=== PATIENT | male | born 1970 | race Caucasian/White ===

== ENCOUNTER 2016-09-27 05:24 | Observation (INO) | payer SELFPAY ==
[2016-09-27] VITALS (7 sets, daily range): BP systolic 122–144; BP diastolic 66–83; PULSE 76–97; RESP 16–18; TEMP 97.8–98.8; O2SAT 94–99
[~2016-09-27] VITALS: Ht 177.8 cm; Wt 105.0 kg
[2016-09-27] MEDS ORDERED: methylPREDNISolone SOD SUCC 125 MG/2 ML VIAL IVP ONE (05:30)
[2016-09-27] MEDS ORDERED: FAMOTIDINE 20 MG/2 ML VIAL IV PUSH ONE (05:30)
[2016-09-27] MEDS ORDERED: SODIUM CHLORIDE 0.9% FLUSH 5 ML FLUSH IVF PRN (05:30)
[2016-09-27] MEDS ORDERED: OMEP20TA PO (05:46)
[2016-09-27] MEDS ORDERED: LISI-515 PO (05:46)
[2016-09-27] MEDS ORDERED: PENICILLIN V POTASSIUM 500 MG TAB PO ONE (06:00)
[2016-09-27 06:10] LABS: AUTOMATED NEUTROPHIL # 3.5 TH/MM3 (1.8-7.7); BASOPHIL % 0.6 % (0.0-2.0); EOSINOPHIL # 0.1 TH/MM3 (0-0.4); EOSINOPHIL % 1.5 % (0.0-4.0); HEMATOCRIT 40.4 % (39.0-51.0); HEMO FLAGS DIFF FINAL; LYMPH % 43.9 % (9.0-44.0); LYMPHOCYTE # 3.2 TH/MM3 (1.0-4.8); MEAN CORPUSCULAR HEMOGLOBIN 28.3 PG (27.0-34.0); MEAN CORPUSCULAR HGB CONC 33.3 % (32.0-36.0); MONO % 6.4 % (0.0-8.0); NEUT % 47.6 % (16.0-70.0); PLATELET COUNT 284 TH/MM3 (150-450); RED BLOOD COUNT 4.76 MIL/MM3 (4.50-5.90); RED CELL DISTRIBUTION WIDTH 14.3 % (11.6-17.2); WHITE BLOOD COUNT 7.3 TH/MM3 (4.0-11.0)
--- NOTE | 2016-09-27 06:26 | PD ---
HPI Chief Complaint: Edema Time Seen by Provider: 05:27 Travel History International Travel<30 days: No Contact w/Intl Traveler<30days: No Traveled to known affect area: No History of Present Illness HPI Patient's 46 years old. The patient is here with swelling of the uvula. He woke up with a sensation of swelling in his throat. It has been constant since. He takes lisinopril. He said no fever or sore throat recently. EMS gave the patient Benadryl 50 mg IM. Patient also received 0.3 mg epinephrine. No similar prior events. PFSH Past Medical History Diminished Hearing: No GERD: Yes Hypertension: Yes Tetanus Vaccination: Unknown Influenza Vaccination: No Past Surgical History Appendectomy: Yes Cholecystectomy: Yes Social History Alcohol Use: Yes (daily) Tobacco Use: No Substance Use: No Allergies-Medications (Allergen,Severity, Reaction): Coded Allergies: No Known Allergies (Unverified , 09/27/16) Reported Meds & Prescriptions Reported Meds & Active Scripts Active Reported Omeprazole 20 Mg Tab 20 Mg PO DAILY Lisinopril 20 Mg Tab 20 Mg PO DAILY Review of Systems Except as stated in HPI: all other systems reviewed are Neg Physical Exam Narrative GENERAL: 46 yo M, WNWD SKIN: Warm and dry. HEAD: Atraumatic. Normocephalic. EYES: Pupils equal and round. No scleral icterus. No injection or drainage. ENT: No nasal bleeding or discharge. Mucous membranes pink and moist. Uvula mildly edematous. No adjacent erythema/exudate or sign of infectious pharyngitis. NECK: Trachea midline. No JVD. CARDIOVASCULAR: Regular rate and rhythm. No murmur appreciated. RESPIRATORY: No accessory muscle use. Clear to auscultation. Breath sounds equal bilaterally. GASTROINTESTINAL: Abdomen soft, non-tender, nondistended. Hepatic and splenic margins not palpable. MUSCULOSKELETAL: No obvious deformities. No clubbing. No cyanosis. No edema. NEUROLOGICAL: Awake and alert. No obvious cranial nerve deficits. Motor grossly within normal limits. Normal speech. PSYCHIATRIC: Appropriate mood and affect; insight and judgment normal. Data Data Last Documented VS Vital Signs Date Time Temp Pulse Resp B/P Pulse Ox O2 Delivery O2 Flow Rate FiO2 09/27/16 06:26 89 18 134/77 95 Room Air 09/27/16 05:38 97.9 Orders Basic Metabolic Panel (Bmp) (09/27/16 05:27) Complete Blood Count With Diff (09/27/16 05:27) Ecg Monitoring (09/27/16 05:27) Iv Access Insert/Monitor (09/27/16 05:27) Oximetry (09/27/16 05:27) Methylprednisolone So Succ Inj (Solumedr (09/27/16 05:30) Famotidine Inj (Pepcid Inj) (09/27/16 05:30) Sodium Chloride 0.9% Flush (Ns Flush) (09/27/16 05:30) Soft Tissue Neck (09/27/16 ) Penicillin V Potassium (Veetids) (09/27/16 06:00) Labs Laboratory Tests Test 09/27/16 05:50 White Blood Count 7.3 TH/MM3 Red Blood Count 4.76 MIL/MM3 Hemoglobin 13.5 GM/DL Hematocrit 40.4 % Mean Corpuscular Volume 85.0 FL Mean Corpuscular Hemoglobin 28.3 PG Mean Corpuscular Hemoglobin 33.3 % Concent Red Cell Distribution Width 14.3 % Platelet Count 284 TH/MM3 Mean Platelet Volume 8.8 FL Neutrophils (%) (Auto) 47.6 % Lymphocytes (%) (Auto) 43.9 % Monocytes (%) (Auto) 6.4 % Eosinophils (%) (Auto) 1.5 % Basophils (%) (Auto) 0.6 % Neutrophils # (Auto) 3.5 TH/MM3 Lymphocytes # (Auto) 3.2 TH/MM3 Monocytes # (Auto) 0.5 TH/MM3 Eosinophils # (Auto) 0.1 TH/MM3 Basophils # (Auto) 0.0 TH/MM3 CBC Comment DIFF FINAL Differential Comment Sodium Level 139 MEQ/L Potassium Level 3.4 MEQ/L Chloride Level 105 MEQ/L Carbon Dioxide Level 21.8 MEQ/L Anion Gap 12 MEQ/L Blood Urea Nitrogen 16 MG/DL Creatinine 0.94 MG/DL Estimat Glomerular Filtration 86 ML/MIN Rate Random Glucose 115 MG/DL Calcium Level 8.6 MG/DL [facility] Medical Decision Making Medical Screen Exam Complete: Yes Emergency Medical Condition: Yes Medical Record Reviewed: Yes Differential Diagnosis Angioedema, pharyngitis, anaphylaxis Narrative Course Epinephrine, Solumedrol, Benadryl and Pepcid administered. Pt will be monitored in the ER. Oncoming provider will continue to observe patient with disposition pending response to interventions offered here. Howard New MD Sep 27, 2016 06:26
--- NOTE | 2016-09-27 06:33 | RADRPT ---
EXAM DATE/TIME: 09/27/2016 06:22 [place] COMPARISON: No previous studies available for comparison. INDICATIONS : Sore throat with difficulty swallowing. MEDICAL HISTORY : None. SURGICAL HISTORY : None. ENCOUNTER: Initial ACUITY: 1 day PAIN SCORE: 6/10 LOCATION: Bilateral neck FINDINGS: Two view examination of the soft tissues of the neck demonstrates the hypopharyngeal airway to have a grossly normal configuration. The trachea is midline. No radiopaque foreign bodies are seen. CONCLUSION: 1. Negative soft tissue examination of the neck Manjinder Murphy MD on September 27, 2016 at 6:31 Board Certified Radiologist. This report was verified electronically.
[2016-09-27 06:41] LABS: BICARBONATE 21.8 MEQ/L (21.0-32.0); POTASSIUM 3.4 MEQ/L (3.5-5.1)
--- NOTE | 2016-09-27 08:06 | PD ---
Physical Exam Date Seen by Provider: Sep 27, 2016 Time Seen by Provider: 08:01 Narrative 46-year-old male came to the emergency room with history of difficulty swallowing and foreign body sensation at the back of his throat. He was seen by the previous ER physician who had diagnosed him with uvulitis since on exam a swollen and elongated uvula was noticed. Patient came in by EMS and had received atropine and IM Benadryl. Here he was given IV Solu-Medrol and IV Pepcid. I went and saw the patient and hour and a half after the medications. He seemed very anxious and was sitting up. Saying that he wanted to sleep but was afraid to sleep in case he stopped breathing. I looked at his uvula and it was edematous but did not seem to be obstructing the airway. Patient did not have any stridor or drooling. He was talking normal. I plan to watch him for another 2 and half hours. If symptoms improve patient will be discharged. Otherwise I will admit him for observation. I have explained this to the patient and he understands and is comfortable with that plan. Data Data Last Documented VS Vital Signs Date Time Temp Pulse Resp B/P Pulse Ox O2 Delivery O2 Flow Rate FiO2 09/27/16 06:26 89 18 134/77 95 Room Air 09/27/16 05:38 97.9 Orders Basic Metabolic Panel (Bmp) (09/27/16 05:27) Complete Blood Count With Diff (09/27/16 05:27) Ecg Monitoring (09/27/16 05:27) Iv Access Insert/Monitor (09/27/16 05:27) Oximetry (09/27/16 05:27) Methylprednisolone So Succ Inj (Solumedr (09/27/16 05:30) Famotidine Inj (Pepcid Inj) (09/27/16 05:30) Sodium Chloride 0.9% Flush (Ns Flush) (09/27/16 05:30) Soft Tissue Neck (09/27/16 ) Penicillin V Potassium (Veetids) (09/27/16 06:00) Racemic Epinephrine 2.25% Neb (Racepinep (09/27/16 08:45) Alprazolam (Xanax) (09/27/16 09:00) Diet Npo (2/18/17 Breakfast) Vital Signs (Adult) EVY.Q4H (09/27/16 09:11) Sodium Chlor 0.9% 1000 Ml Inj (Ns 1000 M (09/27/16 09:15) Ceftriaxone Inj (Rocephin Inj) (09/27/16 10:00) Ondansetron Inj (Zofran Inj) (09/27/16 09:15) Admit Order (Ed Use Only) (09/27/16 09:09) Labs Laboratory Tests Test 09/27/16 05:50 White Blood Count 7.3 TH/MM3 Red Blood Count 4.76 MIL/MM3 Hemoglobin 13.5 GM/DL Hematocrit 40.4 % Mean Corpuscular Volume 85.0 FL Mean Corpuscular Hemoglobin 28.3 PG Mean Corpuscular Hemoglobin 33.3 % Concent Red Cell Distribution Width 14.3 % Platelet Count 284 TH/MM3 Mean Platelet Volume 8.8 FL Neutrophils (%) (Auto) 47.6 % Lymphocytes (%) (Auto) 43.9 % Monocytes (%) (Auto) 6.4 % Eosinophils (%) (Auto) 1.5 % Basophils (%) (Auto) 0.6 % Neutrophils # (Auto) 3.5 TH/MM3 Lymphocytes # (Auto) 3.2 TH/MM3 Monocytes # (Auto) 0.5 TH/MM3 Eosinophils # (Auto) 0.1 TH/MM3 Basophils # (Auto) 0.0 TH/MM3 CBC Comment DIFF FINAL Differential Comment Sodium Level 139 MEQ/L Potassium Level 3.4 MEQ/L Chloride Level 105 MEQ/L Carbon Dioxide Level 21.8 MEQ/L Anion Gap 12 MEQ/L Blood Urea Nitrogen 16 MG/DL Creatinine 0.94 MG/DL Estimat Glomerular Filtration 86 ML/MIN Rate Random Glucose 115 MG/DL Calcium Level 8.6 MG/DL [facility] Supervised Visit with ERIN: No Narrative Course 9:15 AM patient continued to complain that he is uncomfortable. Still no stridor or drooling. I have ordered a racemic epinephrine for him. Patient at this point agreed to take something for anxiety and I have ordered 0.5 mg of by mouth Xanax. I decided to admit him for observation at this point since he seems to have little symptomatic relief. I spoke with the hospitalist was accepted the case. I let the patient know and he is happy with the plan. Critical Care Narrative Aggregate critical care time was 30 minutes. Time to perform other separately billable procedures was not included in the critical care time. My time did not include minutes spent treating any other patients simultaneously or on activities that did not directly contribute to the patient's treatment. The services I provided to this patient were to treat and/or prevent clinically significant deterioration that could result in: Angioedema, uvulitis, upper airway observation I provided critical care services requiring my management, as noted below: Chart data review, documentation time, medication orders and management, vital sign assessments/reviewing monitor data, ordering and reviewing lab tests, ordering and interpreting/reviewing x-rays and diagnostic studies, care of the patient and discussion of the patient with the admitting physicians. Diagnosis Primary Impression: Uvulitis Additional Impressions: Odynophagia Angioedema Qualified Code: T78.3XXA - Angioedema, initial encounter Admitting Information Admitting Physician Requests: Observation Scripts Amlodipine (Norvasc)2.5 Mg Tab2.5 Mg PO DAILY #15 TAB Ref 0 Prov:Mary Pham MD 09/28/16 Penicillin V Potassium 500 Mg [id number] Mg PO Q8H 7 Days Ref 0 Prov:Mary Pham MD 09/28/16 Gera Babcock MD Sep 27, 2016 08:06
[2016-09-27] MEDS ORDERED: RESP: RACEPINEPHRINE 2.25% 0.5 ML NEB NEB ONE (08:45)
[2016-09-27] MEDS ORDERED: ALPRAZolam 0.5 MG TAB PO ONE (09:00)
[2016-09-27] MEDS ORDERED: ONDANSETRON HCL 4 MG/2 ML VIAL IV PUSH PRN (09:15)
[2016-09-27] MEDS ORDERED: SODIUM CHLOR 0.9% 1000 ML INJ 1,000 ML IV SCH (09:15)
[2016-09-27] MEDS: cefTRIAXone INJ 1,000 MG in SODIUM CHLORIDE 0.9% INJ 100 ML IV SCH (10:00)
--- NOTE | 2016-09-27 13:07 | HHI.HP ---
[facility] Service [facility] Primary Care Physician Non-Staff Admission Diagnosis uvulitis Diagnoses: (1) Uvulitis Diagnosis: Principal Chief Complaint: ' I couldn't breath.' Travel History International Travel<30 Days: No Contact w/Intl Traveler <30 Da: No Traveled to Known Affected Are: No History of Present Illness patient is a 46 y/o male with history of hypertension, who presented to ER with difficulty breathing. he says that he woke up around 4 in the morning with severe sob. he says that it was ' so bad that he got scared and decided to come to the hospital.' he says that his uvula got so big that he could feel it in his throat. he denies any sore throat, fever or chills. he received a dose of IV steroid along with racepinephrine. by the time of my evaluation he was feeling better with improvement in his sob. Review of Systems Constitutional: DENIES: Fever, Weight loss, Chills, Night Sweats Eyes: DENIES: Blurred vision, Diplopia, Vision loss, Double Vision Ears, nose, mouth, throat: DENIES: Tinnitus, Vertigo, Throat pain, Epistaxis Respiratory: COMPLAINS OF: Shortness of breath, DENIES: Apneas, Cough, Snoring , Wheezing, Hemoptysis, Sputum production Cardiovascular: DENIES: Chest pain, Palpitations, Syncope, Dyspnea on Exertion , PND, Lower Extremity Edema, Orthopnea, Claudication Gastrointestinal: DENIES: Abdominal pain, Black stools, Bloody stools, Constipation, Diarrhea, Nausea, Vomiting, Difficulty Swallowing, Anorexia Genitourinary: DENIES: Urinary frequency, Urgency, Hematuria, Dysuria Musculoskeletal: DENIES: Joint pain, Muscle aches, Stiffness, Joint Swelling Integumentary: DENIES: Rash Neurologic: DENIES: Abnormal gait, Headache, Localized weakness, Paresthesias, Seizures, Speech Problems, Tremor, Poor Balance Psychiatric: DENIES: Anxiety, Confusion, Mood changes, Depression, Hallucinations, Agitation, Suicidal Ideation, Homicidal Ideation, Delusions Past Family Social History Past Medical History hypertension Past Surgical History appendectomy Reported Medications lisinopril omeprazole Allergies: Coded Allergies: No Known Allergies (Unverified , 09/27/16) Active Ordered Medications Current Medications Methylprednisolone Sodium Succinate (SoluMEDROL INJ) 125 mg ONCE ONCE IVP Last administered on 09/27/16 05:37; Start 09/27/16 at 05:30; Stop 09/27/16 at 05:31; Status DC Famotidine (Pepcid Inj) 20 mg ONCE ONCE IV PUSH Last administered on 05:53; Start 09/27/16 at 05:30; Stop 09/27/16 at 05:31; Status DC IV Flush (NS Flush) 2 ml UNSCH PRN IVF FLUSH AFTER USING IV ACCESS; Start 09/27 at 05:30 Penicillin V Potassium (Veetids) 500 mg ONCE ONCE PO ; Start 09/27/16 at 06:00 ; Stop 09/27/16 at 06:01; Status DC Racepinephrine (Racepinephrine 2.25% Neb) 0.5 ml ONCE ONCE NEB Last administered on 09/27/16 09:22; Start 09/27/16 at 08:45; Stop 09/27/16 at 08:46 ; Status DC Alprazolam 0.5 mg 0.5 mg ONCE ONCE PO Last administered on 09/27/16 09:15; Start 09/27/16 at 09:00; Stop 09/27/16 at 09:01; Status DC Sodium Chloride 1,000 ml @ 100 mls/hr Q10H IV Last administered on 09/27/16 10:00; Start 09/27/16 at 09:15 Ceftriaxone Sodium/Sodium Chloride (Rocephin Inj/NS Inj) 100 ml @ 200 mls/hr Q24H IV Last administered on 09/27/16 10:00; Start 09/27/16 at 10:00 Ondansetron HCl (Zofran Inj) 4 mg Q8HR PRN IV PUSH NAUSEA; Start 09/27/16 at 09 :15 Family History heart attack in father. Social History quit smoking. drinks occasionally. Physical Exam Vital Signs Vital Signs Date Time Temp Pulse Resp B/P Pulse Ox O2 Delivery O2 Flow Rate FiO2 09/27/16 10:00 78 16 137/71 95 Room Air 09/27/16 09:25 97 21 09/27/16 06:26 89 18 134/77 95 Room Air 09/27/16 05:40 94 Room Air 09/27/16 05:38 97.9 84 18 144/83 94 Physical Exam GENERAL: This is a well-nourished, well-developed patient, in no apparent distress. SKIN: No rashes, ecchymoses or lesions. Cool and dry. HEAD: Atraumatic. Normocephalic. No temporal or scalp tenderness.uvula looks swollen and mildly inflamed. EYES: Pupils equal round and reactive. Extraocular motions intact. No scleral icterus. No injection or drainage. ENT: Nose without bleeding, purulent drainage or septal hematoma. Throat without erythema, tonsillar hypertrophy or exudate. Uvula midline. Airway patent. NECK: Trachea midline. No JVD or lymphadenopathy. Supple, nontender, no meningeal signs. CARDIOVASCULAR: Regular rate and rhythm without murmurs, gallops, or rubs. RESPIRATORY: Clear to auscultation. Breath sounds equal bilaterally. No wheezes , rales, or rhonchi. GASTROINTESTINAL: Abdomen soft, non-tender, nondistended. No hepato-splenomegaly , or palpable masses. No guarding. MUSCULOSKELETAL: Extremities without clubbing, cyanosis, or edema. No joint tenderness, effusion, or edema noted. No calf tenderness. Negative Homans sign bilaterally. NEUROLOGICAL: Awake and alert. Cranial nerves II through XII intact. Motor and sensory grossly within normal limits. Five out of 5 muscle strength in all muscle groups. Normal speech. Laboratory Laboratory Tests Test 09/27/16 05:50 White Blood Count 7.3 Red Blood Count 4.76 Hemoglobin 13.5 Hematocrit 40.4 Mean Corpuscular Volume 85.0 Mean Corpuscular Hemoglobin 28.3 Mean Corpuscular Hemoglobin 33.3 Concent Red Cell Distribution Width 14.3 Platelet Count 284 Mean Platelet Volume 8.8 Neutrophils (%) (Auto) 47.6 Lymphocytes (%) (Auto) 43.9 Monocytes (%) (Auto) 6.4 Eosinophils (%) (Auto) 1.5 Basophils (%) (Auto) 0.6 Neutrophils # (Auto) 3.5 Lymphocytes # (Auto) 3.2 Monocytes # (Auto) 0.5 Eosinophils # (Auto) 0.1 Basophils # (Auto) 0.0 CBC Comment DIFF FINAL Differential Comment Sodium Level 139 Potassium Level 3.4 Chloride Level 105 Carbon Dioxide Level 21.8 Anion Gap 12 Blood Urea Nitrogen 16 Creatinine 0.94 Estimat Glomerular Filtration 86 Rate Random Glucose 115 Calcium Level 8.6 Result Diagram: 09/27/16 0550 09/27/16 0550 Imaging Last Impressions Soft Tissue Neck X-Ray 09/27/16 0000 Signed Impressions: Service Date/Time: Tuesday, September 27, 2016 06:22 - CONCLUSION: 1. Negative soft tissue examination of the neck Manjinder Murphy MD Assessment and Plan Assessment and Plan A/P - Uvulitis seems to be improving- received IV steroid and racepinephrine in ER- started on IV antibiotic ( refused po pencillin earlier) -hypertension; hold lisinopril- will monitor for now Discussed Condition With ER physician and the patient. Mary Pham MD Sep 27, 2016 13:07
[2016-09-28 04:10] VITALS: BP 109/58; PULSE 61; RESP 21; TEMP 98.8; O2SAT 97
[2016-09-28] MEDS: cefTRIAXone INJ 1,000 MG in SODIUM CHLORIDE 0.9% INJ 100 ML IV SCH (10:00)
--- NOTE | 2016-09-28 10:14 | HHI.PR ---
Subjective Remarks overall doing fine. no sob. no fever. wants to go home. Objective Vitals Vital Signs Date Time Temp Pulse Resp B/P Pulse Ox O2 Delivery O2 Flow Rate FiO2 09/28/16 04:10 98.8 61 21 109/58 97 09/27/16 23:42 98.8 76 18 131/75 99 09/27/16 20:19 97.8 97 18 134/66 97 09/27/16 15:28 98.4 95 18 122/72 95 I/O 09/27/16 09/27/16 09/27/16 09/28/16 09/28/16 09/28/16 07:00 15:00 23:00 07:00 15:00 23:00 Intake Total 480 ml Balance 480 ml Intake Oral 480 ml # Voids 1 1 # Bowel Movements 1 Result Diagram: 09/27/16 0550 09/27/16 0550 Imaging Last Impressions Soft Tissue Neck X-Ray 09/27/16 0000 Signed Impressions: Service Date/Time: Tuesday, September 27, 2016 06:22 - CONCLUSION: 1. Negative soft tissue examination of the neck Manjinder Murphy MD Objective Remarks GENERAL: This is a well-nourished, well-developed patient, in no apparent distress. HEENT; swelling of the uvula has improved. CARDIOVASCULAR: Regular rate and regular rhythm without murmurs, gallops, or rubs. RESPIRATORY: Clear to auscultation. Breath sounds equal bilaterally. No wheezes , rales, or rhonchi. GASTROINTESTINAL: Abdomen soft, non-tender, nondistended. Normal, active bowel sounds MUSCULOSKELETAL: Extremities without clubbing, cyanosis, or edema. NEURO: Alert & Oriented x4 to person, place, time, situation. Moves all ext x4 Procedures none Medications and IVs Current Medications Methylprednisolone Sodium Succinate (SoluMEDROL INJ) 125 mg ONCE ONCE IVP Last administered on 09/27/16 05:37; Start 09/27/16 at 05:30; Stop 09/27/16 at 05:31; Status DC Famotidine (Pepcid Inj) 20 mg ONCE ONCE IV PUSH Last administered on 05:53; Start 09/27/16 at 05:30; Stop 09/27/16 at 05:31; Status DC IV Flush (NS Flush) 2 ml UNSCH PRN IVF FLUSH AFTER USING IV ACCESS; Start 09/27 at 05:30 Penicillin V Potassium (Veetids) 500 mg ONCE ONCE PO ; Start 09/27/16 at 06:00 ; Stop 09/27/16 at 06:01; Status DC Racepinephrine (Racepinephrine 2.25% Neb) 0.5 ml ONCE ONCE NEB Last administered on 09/27/16 09:22; Start 09/27/16 at 08:45; Stop 09/27/16 at 08:46 ; Status DC Alprazolam 0.5 mg 0.5 mg ONCE ONCE PO Last administered on 09/27/16 09:15; Start 09/27/16 at 09:00; Stop 09/27/16 at 09:01; Status DC Sodium Chloride 1,000 ml @ 100 mls/hr Q10H IV Last administered on 09/27/16 10:00; Start 09/27/16 at 09:15; Stop 09/27/16 at 13:08; Status DC Ceftriaxone Sodium/Sodium Chloride (Rocephin Inj/NS Inj) 100 ml @ 200 mls/hr Q24H IV Last administered on 09/27/16 10:00; Start 09/27/16 at 10:00 Ondansetron HCl 4 mg 4 mg Q8HR PRN IV PUSH NAUSEA; Start 09/27/16 at 09:15 Sodium Chloride (NS 1000 ml Inj) 1,000 ml @ 100 mls/hr Q10H ONCE IV ; Start at 13:00; Stop 09/28/16 at 22:59 A/P Assessment and Plan - Uvulitis- improved received IV steroid and racepinephrine in ER- will switch to po antibiotic -hypertension; stop lisinopril- start low dose norvasc- f/u as outpatient with his PCP- d/w the patient. Discharge Planning dc home with f/u by PCP. see med list. d/w the patient. Mary Pham MD Sep 28, 2016 10:14
[2016-09-28] MEDS ORDERED: PENI500T PO (10:15)
[2016-09-28] MEDS ORDERED: NORV2.5T PO ×2 (10:15→10:18)
--- NOTE | 2016-09-28 10:16 | HHI.DCPOC ---
Discharge Care Plan Diagnosis: (1) Uvulitis Your Health Problems Are: Inflammation Swelling Goals to Promote Your Health * To prevent worsening of your condition and complications * To maintain your health at the optimal level Directions to Meet Your Goals Take your medications as prescribed Follow your dietary instruction Follow activity as directed Keep your appointments as scheduled Take your immunizations and boosters as scheduled If your symptoms worsen call your PCP, if no PCP go to Urgent Care Center or Emergency Room Smoking is Dangerous to Your Health. Avoid second hand smoke Call the 24-hour hour crisis hotline for domestic abuse at Mary Pham MD Sep 28, 2016 10:16
--- NOTE | 2016-09-28 10:16 | HHI.DS ---
Discharge Summary Admission Date Sep 27, 2016 at 09:15 Discharge Date: Sep 28, 2016 Admitting Diagnosis uvulitis (1) Uvulitis ICD Code: K12.2 Diagnosis: Principal Procedures none Brief History - From Admission patient is a 46 y/o male with history of hypertension, who presented to ER with difficulty breathing. he says that he woke up around 4 in the morning with severe sob. he says that it was ' so bad that he got scared and decided to come to the hospital.' he says that his uvula got so big that he could feel it in his throat. he denies any sore throat, fever or chills. he received a dose of IV steroid along with racepinephrine. by the time of my evaluation he was feeling better with improvement in his sob. CBC/BMP: 09/27/16 0550 09/27/16 0550 Significant Findings Laboratory Tests Test 09/27/16 05:50 Potassium Level 3.4 MEQ/L (3.5-5.1) Estimat Glomerular Filtration 86 ML/MIN (>89) Rate Random Glucose 115 MG/DL (74-106) Imaging Last Impressions Soft Tissue Neck X-Ray 09/27/16 0000 Signed Impressions: Service Date/Time: Tuesday, September 27, 2016 06:22 - CONCLUSION: 1. Negative soft tissue examination of the neck Manjinder Murphy MD PE at Discharge GENERAL: This is a well-nourished, well-developed patient, in no apparent distress. HEENT; swelling of the uvula has improved. CARDIOVASCULAR: Regular rate and regular rhythm without murmurs, gallops, or rubs. RESPIRATORY: Clear to auscultation. Breath sounds equal bilaterally. No wheezes , rales, or rhonchi. GASTROINTESTINAL: Abdomen soft, non-tender, nondistended. Normal, active bowel sounds MUSCULOSKELETAL: Extremities without clubbing, cyanosis, or edema. NEURO: Alert & Oriented x4 to person, place, time, situation. Moves all ext x4 Hospital Course - Uvulitis- improved received IV steroid and racepinephrine in ER- will switch to po antibiotic -hypertension; stop lisinopril- start low dose norvasc- f/u as outpatient with his PCP- d/w the patient. Pt Condition on Discharge: Good Discharge Disposition: Discharge Home Discharge Time: <= 30 minutes Discharge Instructions DIET: Follow Instructions for: Heart Healthy Diet Activities you can perform: Regular-No Restrictions Follow up Referrals: PCP Follow-up New Medications: Amlodipine (Norvasc) 2.5 Mg Tab 2.5 MG PO DAILY Blood Pressure Management #15 Ref 0 TAB Penicillin V Potassium (Penicillin V Potassium) 500 Mg Tab 500 MG PO Q8H Infection Days 7 Ref 0 TAB Continued Medications: Omeprazole (Omeprazole) 20 Mg Tab 20 MG PO DAILY #30 Ref 0 TAB Discontinued Medications: Lisinopril (Lisinopril) 20 Mg Tab 20 MG PO DAILY #30 Ref 0 TAB Mary Pham MD Sep 28, 2016 10:16
[2016-09-28 10:21] VITALS: BP 119/66; PULSE 90; RESP 18; TEMP 97.5; O2SAT 97
[2016-09-28] MEDS ORDERED: SODIUM CHLOR 0.9% 1000 ML INJ 1,000 ML IV ONE (13:00)
== END 2016-09-28 17:51 | disposition home or self-care (01) ==
LOC: NEPE 05:24 → NEDA 09:15 → NEPHCDU 13:24
PROVIDERS: ADMIT Internal Medicine; ATTEND Internal Medicine
DX: K12.2 Cellulitis and abscess of mouth (principal); T78.3XXA Angioneurotic edema, initial encounter; I10 Essential (primary) hypertension; K21.9 Gastro-esophageal reflux disease without esophagitis; F41.9 Anxiety disorder, unspecified; Z79.899 Other long term (current) drug therapy
CPT/HCPCS: 70360; 80048; 85025; 94664; 96374; 96375; 99291; G0378; J0696; J2930; J7030